=== PATIENT | male | born 1990 | race Caucasian/White ===

== ENCOUNTER 2018-01-03 02:29 | Emergency (ER) | payer MEDICAID, OTHER ==
--- NOTE | 2018-01-03 04:20 | EDM.PDOC ---
ED HPI GENERAL MEDICAL PROBLEM - General Chief Complaint: Bite:Animal, Insect Stated Complaint: BAT ENCOUNTER Time Seen by Provider: 01/03/18 03:47 Source of Information: Reports: Patient History Limitations: Reports: No Limitations - History of Present Illness INITIAL COMMENTS - FREE TEXT/NARRATIVE: This patient was in a house that had not been occupied for awhile. He went to sleep and when he awakened a bat whas flying around. He doesn't know if he got bitten or not. - Related Data Allergies Allergy/AdvReac Type Severity Reaction Status Date / Time sun Allergy Hives Uncoded 01/03/18 03:12 Home Meds: Home Meds NK [No Known Home Meds] 01/03/18 [History] Past Medical History - Infectious Disease History Infectious Disease History: Reports: Chicken Pox - Past Surgical History HEENT Surgical History: Reports: LASIK, Other (See Below) Other HEENT Surgeries/Procedures: wisdom teeth Musculoskeletal Surgical History: Reports: Other (See Below) Other Musculoskeletal Surgeries/Procedures:: left arm/wrist Social & Family History - Tobacco Use Smoking Status *Q: Never Smoker Second Hand Smoke Exposure: No - Caffeine Use Caffeine Use: Reports: Coffee - Recreational Drug Use Recreational Drug Use: No ED ROS GENERAL - Review of Systems Review Of Systems: ROS reveals no pertinent complaints other than HPI. ED EXAM, ANIMAL BITE - Physical Exam Exam: See Below Exam Limited By: No Limitations General Appearance: Alert, WD/WN, No Apparent Distress Eye Exam: Bilateral Eye: Normal Inspection Ears: Normal External Exam Nose: Normal Inspection Throat/Mouth: Normal Inspection Head: Atraumatic Neck: Normal Inspection Respiratory/Chest: No Respiratory Distress Cardiovascular: Normal Peripheral Pulses Extremities: Normal Inspection Skin Exam: Normal Color Course - Vital Signs Last Recorded V/S: Last Vital Signs Temp 36.3 C 01/03/18 03:10 Pulse 79 01/03/18 03:10 Resp 14 01/03/18 03:10 BP 145/87 H 01/03/18 03:10 Pulse Ox 97 01/03/18 03:10 Departure - Departure Time of Disposition: 04:18 Disposition: Home, Self-Care 01 Condition: Fair Clinical Impression: Rabies exposure - Discharge Information Instructions: Rabies Referrals: PCP,None [Primary Care Provider] - Forms: ED Department Discharge Additional Instructions: I spoke with Cristian Vargas at the [facility]. He doesn't think you're going to need any of the post exposure rabies prophylaxis. However in the morning he will talk with his delivery driver/supervisor and if you need treatment they will get in touch with you. I recommend if you don't hear from them in a day or 2 then you should go ahead and give them a call just to follow-up on it the number is [phone]
== END 2018-01-03 04:49 | disposition home or self-care (01) ==
LOC: JP.ED 02:29
DX: Z20.3 Contact with and (suspected) exposure to rabies (principal); Z91.09 Other allergy status, other than to drugs and biological substances
CPT/HCPCS: 99283